=== PATIENT | female | born 1965 | race Caucasian/White ===

== ENCOUNTER 2017-07-06 15:44 | Inpatient (IN) | payer MEDICARE, MEDICAID ==
[~2017-07-06] VITALS: Ht 160 cm; Wt 48.2 kg
[~2017-07-06 15:44] MED LIST: BUPR1TAB44 SL; DIPH25CA85 PO; GABA100C PO; LEVO50TA4 PO; RISP4TAB63 PO; ZOLP5TAB2 PO
[2017-07-06] MEDS ORDERED: PHENY100 PO (17:40)
[2017-07-06] MEDS ORDERED: PREG25 PO (17:40)
[2017-07-06] MEDS ORDERED: MORP15 PO (17:40)
[2017-07-06 18:12] LABS: BASOPHILS # (AUTO) 0.07 K/uL (0.00-0.20); EOSINOPHILS # (AUTO) 0.02 K/uL (0.00-0.70); EOSINOPHILS % (AUTO) 0.26 % (1.0-6.0); HEMATOCRIT 46.1 % (36-46); HEMOGLOBIN 15.4 g/dL (12.0-16.0); LYMPHOCYTES # (AUTO) 1.3 K/uL (1.0-4.8); LYMPHOCYTES % (AUTO) 18.9 % (22.0-44.0); MEAN CORPUSCULAR HGB CONC 33.3 G/dL (31.0-37.0); MEAN CORPUSCULAR VOLUME 90 fL (80-100); MONOCYTES # (AUTO) 0.4 K/uL (0.1-1.0); MONOCYTES % (AUTO) 5.6 % (2.0-9.0); NEUTROPHILS % (AUTO) 74.3 % (40.0-70.0); PLATELET COUNT (AUTO) 149 K/uL (150-450); RED BLOOD CELL COUNT(AUTO) 5.11 MIL/uL (4.00-5.20); RED CELL DISTRIBUTION WIDTH 12.8 % (11.5-14.5); WHITE BLOOD COUNT (AUTO) 6.8 K/uL (4.5-11.0)
[2017-07-06] MEDS ORDERED: ZOLP10TA7 PO (18:15)
[2017-07-06] MEDS ORDERED: LORazepam 2 MG/ML VIAL IM ONE (18:15)
[2017-07-06] MEDS ORDERED: HALOPERIDOL LACTATE 5 MG/ML VIAL IM ONE (18:15)
[2017-07-06] MEDS ORDERED: DiphenhydrAMINE HCL 50 MG/ML VIAL IM ONE (18:15)
[2017-07-06 18:27] LABS: ALANINE AMINOTRANSFERASE 17 U/L (12-78); ALBUMIN 3.8 g/dL (3.4-5.0); ANION GAP 8 mmol/L (8-16); ASPARTATE AMINOTRANSFERASE 21 U/L (15-37); BILIRUBIN,TOTAL 0.6 mg/dL (0.1-1.0); CALCIUM, TOTAL 9.1 mg/dL (8.8-10.5); CARBON DIOXIDE 28 mmol/L (22-29); CHLORIDE 102 mmol/L (98-107); CREATININE 0.74 mg/dL (0.60-1.30); GLOMERULAR FILTR. RATE CALC > 60 mL/min (>60); SODIUM SERUM 138 mmol/L (136-145); TOTAL PROTEIN, SERUM 7.1 g/dL (6.4-8.2); UREA NITROGEN, BLOOD 11 mg/dL (7-18)
[2017-07-06 18:29] LABS: POTASSIUM 2.8 mmol/L (3.5-5.1)
[2017-07-06] MEDS ORDERED: POTASSIUM CHLORIDE 20 MEQ ER TABLET PO ONE (18:30)
[2017-07-06 20:13] LABS: CHOL/HDL RATIO 2.2 (3.9-5.7); THYROID STIMULATING HORMONE 0.36 uIU/mL (0.36-3.74)
[2017-07-06 21:25] VITALS: BP 137/75
[2017-07-06] MEDS: QUEtiapine FUMARATE 200 MG TABLET PO SCH (22:30)
[2017-07-07 04:31] VITALS: BP 95/72
[2017-07-07] MEDS ORDERED: CloNIDine HCL 0.1 MG TABLET PO PRN (07:30)
[2017-07-07] MEDS ORDERED: LOPERAMIDE HCL 2 MG CAPSULE PO PRN (07:30)
[2017-07-07] MEDS ORDERED: ALBUTEROL SULFATE HFA 90 MCG/PUFF 8 GM INHALER IH PRN (07:30)
[2017-07-07] MEDS ORDERED: BENZOCAINE/MENTHOL LOZENGE MM PRN (07:30)
[2017-07-07] MEDS ORDERED: MAGNESIUM HYDROXIDE SUSPENSION 30 ML UDCUP PO PRN (07:30)
[2017-07-07] MEDS ORDERED: MAG HYDROX/AL HYDROX/SIMETH ES 30 ML SUSPENSION UDCUP PO PRN (07:30)
[2017-07-07] MEDS ORDERED: ONDANSETRON HCL 4 MG TABLET PO PRN (07:30)
[2017-07-07] MEDS ORDERED: BACITRACIN 28.4 GM OINTMENT TP PRN (07:30)
[2017-07-07] MEDS ORDERED: PETROLATUM,WHITE 71 GM JELLY TP PRN (07:30)
[2017-07-07] MEDS: IBUPROFEN 600 MG TABLET PO PRN (07:41)
[2017-07-07] MEDS: LORazepam 2 MG TABLET PO PRN (07:41)
[2017-07-07 08:00] VITALS: BP 110/86
[2017-07-07] MEDS: QUEtiapine FUMARATE 200 MG TABLET PO SCH ×2 (08:35→17:19)
[2017-07-07 09:00] VITALS: BP 100/79
[2017-07-07] MEDS: PREGABALIN 50 MG CAPSULE PO SCH ×3 (10:36→18:01)
[2017-07-07] MEDS: PHENYTOIN SODIUM 100 MG ER CAPSULE PO SCH ×2 (13:20→17:19)
[2017-07-07] MEDS ORDERED: BENZOCAINE/MENTHOL LOZENGE [8 LOZENGES/PACKET] MM PRN (21:15)
[2017-07-07 23:32] VITALS: BP 102/65
[2017-07-08 01:30] VITALS: BP 92/66
[2017-07-08] MEDS: ZOLPIDEM TARTRATE 10 MG TABLET PO PRN (01:37)
[2017-07-08] MEDS: HALOPERIDOL 5 MG TABLET PO PRN ×3 (04:10→19:52)
[2017-07-08] MEDS: IBUPROFEN 600 MG TABLET PO PRN ×3 (05:24→19:53)
[2017-07-08] MEDS: ACETAMINOPHEN 325 MG TABLET PO PRN ×2 (07:14→16:53)
[2017-07-08] MEDS: LEVOTHYROXINE SODIUM 50 MCG TABLET PO SCH (07:14)
[2017-07-08] MEDS: PHENYTOIN SODIUM 100 MG ER CAPSULE PO SCH ×3 (08:21→17:15)
[2017-07-08] MEDS: PREGABALIN 50 MG CAPSULE PO SCH ×3 (08:21→17:16)
[2017-07-08] MEDS: QUEtiapine FUMARATE 200 MG TABLET PO SCH ×2 (08:21→17:16)
[2017-07-08 08:30] VITALS: BP 109/61
[2017-07-08] MEDS: LORazepam 2 MG TABLET PO PRN ×2 (09:51→17:16)
[2017-07-08] MEDS: NICOTINE 21 MG/24 HOUR PATCH TD SCH (11:40)
[2017-07-08 12:15] VITALS: BP 113/70
[2017-07-08 13:30] VITALS: BP 115/63
[2017-07-08 16:50] VITALS: BP 110/77
[2017-07-08 18:00] VITALS: BP 112/75
[2017-07-09] MEDS: LEVOTHYROXINE SODIUM 50 MCG TABLET PO SCH (06:56)
[2017-07-09] MEDS: PHENYTOIN SODIUM 100 MG ER CAPSULE PO SCH ×3 (08:15→16:46)
[2017-07-09] MEDS: QUEtiapine FUMARATE 200 MG TABLET PO SCH ×2 (08:15→16:46)
[2017-07-09] MEDS: PREGABALIN 50 MG CAPSULE PO SCH ×3 (08:15→16:46)
[2017-07-09] MEDS: NICOTINE 21 MG/24 HOUR PATCH TD SCH (08:28)
[2017-07-09 08:55] VITALS: BP 103/80
[2017-07-09] MEDS: LORazepam 2 MG TABLET PO PRN (09:04)
[2017-07-09 10:15] VITALS: BP 99/76
[2017-07-09] MEDS: IBUPROFEN 600 MG TABLET PO PRN ×2 (10:22→19:14)
[2017-07-09 11:25] VITALS: BP 97/76
[2017-07-09] MEDS: HALOPERIDOL 5 MG TABLET PO PRN (11:36)
[2017-07-09 18:04] VITALS: BP 102/57
[2017-07-09] MEDS: ZOLPIDEM TARTRATE 10 MG TABLET PO PRN (21:05)
[2017-07-10] VITALS (9 sets, daily range): BP systolic 103–121; BP diastolic 56–87
[2017-07-10] MEDS: IBUPROFEN 600 MG TABLET PO PRN ×3 (02:26→17:33)
[2017-07-10] MEDS: LEVOTHYROXINE SODIUM 50 MCG TABLET PO SCH (07:04)
[2017-07-10] MEDS: PHENYTOIN SODIUM 100 MG ER CAPSULE PO SCH ×3 (08:02→16:10)
[2017-07-10] MEDS: QUEtiapine FUMARATE 200 MG TABLET PO SCH ×2 (08:03→16:10)
[2017-07-10] MEDS: LORazepam 2 MG TABLET PO PRN ×3 (08:03→20:24)
[2017-07-10] MEDS: HALOPERIDOL 5 MG TABLET PO PRN ×3 (08:03→20:24)
[2017-07-10] MEDS: PREGABALIN 50 MG CAPSULE PO SCH ×3 (08:03→16:10)
[2017-07-10] MEDS: NICOTINE 21 MG/24 HOUR PATCH TD SCH (08:07)
[2017-07-10] MEDS: ACETAMINOPHEN 325 MG TABLET PO PRN ×2 (09:54→16:14)
[2017-07-10] MEDS: ZOLPIDEM TARTRATE 10 MG TABLET PO PRN (21:17)
[2017-07-11] VITALS (7 sets, daily range): BP systolic 98–127; BP diastolic 35–76
[2017-07-11] MEDS: IBUPROFEN 600 MG TABLET PO PRN ×2 (05:43→13:57)
[2017-07-11] MEDS: LORazepam 2 MG TABLET PO PRN ×2 (05:43→17:40)
[2017-07-11] MEDS: LEVOTHYROXINE SODIUM 50 MCG TABLET PO SCH (06:45)
[2017-07-11] MEDS: PHENYTOIN SODIUM 100 MG ER CAPSULE PO SCH ×3 (08:07→16:36)
[2017-07-11] MEDS: QUEtiapine FUMARATE 200 MG TABLET PO SCH ×2 (08:07→16:36)
[2017-07-11] MEDS: NICOTINE 21 MG/24 HOUR PATCH TD SCH (08:07)
[2017-07-11] MEDS: PREGABALIN 50 MG CAPSULE PO SCH ×3 (08:07→16:36)
[2017-07-11] MEDS: HALOPERIDOL 5 MG TABLET PO PRN ×2 (09:24→15:18)
[2017-07-11] MEDS: ACETAMINOPHEN 325 MG TABLET PO PRN (10:30)
[2017-07-11] MEDS ORDERED: DiphenhydrAMINE HCL 50 MG/ML VIAL ONE (20:09)
[2017-07-11] MEDS ORDERED: LORazepam 2 MG/ML VIAL IM ONE (20:15)
[2017-07-11] MEDS ORDERED: DiphenhydrAMINE HCL 50 MG/ML VIAL IM ONE (20:15)
[2017-07-11] MEDS ORDERED: HALOPERIDOL LACTATE 5 MG/ML VIAL IM ONE (20:15)
[2017-07-11] MEDS: ZOLPIDEM TARTRATE 10 MG TABLET PO PRN (21:32)
[2017-07-12 06:00] VITALS: BP 110/68
[2017-07-12] MEDS: LORazepam 2 MG TABLET PO PRN ×2 (06:27→10:46)
[2017-07-12] MEDS: LEVOTHYROXINE SODIUM 50 MCG TABLET PO SCH (06:27)
[2017-07-12] MEDS: PREGABALIN 50 MG CAPSULE PO SCH ×3 (08:11→16:25)
[2017-07-12] MEDS: QUEtiapine FUMARATE 200 MG TABLET PO SCH ×2 (08:11→16:25)
[2017-07-12] MEDS: PHENYTOIN SODIUM 100 MG ER CAPSULE PO SCH ×3 (08:12→16:25)
[2017-07-12] MEDS: NICOTINE 21 MG/24 HOUR PATCH TD SCH (08:12)
[2017-07-12 09:21] VITALS: BP 123/44
[2017-07-12 09:46] VITALS: BP 125/89
[2017-07-12] MEDS: IBUPROFEN 600 MG TABLET PO PRN ×2 (09:46→23:06)
[2017-07-12 10:46] VITALS: BP 123/78
[2017-07-12] MEDS: HALOPERIDOL 5 MG TABLET PO PRN (10:46)
[2017-07-12 14:09] VITALS: BP 130/88
[2017-07-12] MEDS: ACETAMINOPHEN 325 MG TABLET PO PRN (14:09)
[2017-07-12 17:15] VITALS: BP 114/62
[2017-07-12] MEDS: ZOLPIDEM TARTRATE 10 MG TABLET PO PRN (23:00)
[2017-07-13 05:30] VITALS: BP 125/86
[2017-07-13] MEDS: HALOPERIDOL 5 MG TABLET PO PRN ×2 (05:31→10:44)
[2017-07-13] MEDS: LORazepam 2 MG TABLET PO PRN (05:31)
[2017-07-13] MEDS: IBUPROFEN 600 MG TABLET PO PRN ×2 (06:47→19:23)
[2017-07-13] MEDS: LEVOTHYROXINE SODIUM 50 MCG TABLET PO SCH (06:47)
[2017-07-13] MEDS: PREGABALIN 50 MG CAPSULE PO SCH ×3 (08:02→16:15)
[2017-07-13] MEDS: NICOTINE 21 MG/24 HOUR PATCH TD SCH (08:02)
[2017-07-13] MEDS: PHENYTOIN SODIUM 100 MG ER CAPSULE PO SCH ×3 (08:02→16:15)
[2017-07-13] MEDS: QUEtiapine FUMARATE 200 MG TABLET PO SCH ×2 (08:02→16:15)
[2017-07-13 09:15] VITALS: BP 145/52
[2017-07-13 18:44] VITALS: BP 105/67
[2017-07-13 19:21] VITALS: BP 110/71
[2017-07-13] MEDS: ZOLPIDEM TARTRATE 10 MG TABLET PO PRN (20:18)
[2017-07-13 20:25] VITALS: BP 121/76
[2017-07-14] MEDS: ACETAMINOPHEN 325 MG TABLET PO PRN ×2 (00:01→05:57)
[2017-07-14 00:02] VITALS: BP 103/57
[2017-07-14 02:30] VITALS: BP 143/83
[2017-07-14] MEDS: IBUPROFEN 600 MG TABLET PO PRN (02:32)
[2017-07-14] MEDS: HALOPERIDOL 5 MG TABLET PO PRN (03:36)
[2017-07-14] MEDS: LORazepam 2 MG TABLET PO PRN (03:36)
[2017-07-14] MEDS: LEVOTHYROXINE SODIUM 50 MCG TABLET PO SCH (06:08)
[2017-07-14 08:30] VITALS: BP 110/73
[2017-07-14] MEDS: PHENYTOIN SODIUM 100 MG ER CAPSULE PO SCH (08:42)
[2017-07-14] MEDS: QUEtiapine FUMARATE 200 MG TABLET PO SCH (08:42)
[2017-07-14] MEDS: PREGABALIN 50 MG CAPSULE PO SCH (08:42)
[2017-07-14] MEDS: NICOTINE 21 MG/24 HOUR PATCH TD SCH (09:00)
[2017-07-14] MEDS ORDERED: QUET200T PO (10:47)
== END 2017-07-14 11:15 | disposition home or self-care (01) | DRG 885 ==
LOC: EMS 15:46 → 3EX 19:24
PROVIDERS: ADMIT Psychiatry & Neurology Psychiatry; ATTEND Psychiatry & Neurology Psychiatry
DX: F25.9 Schizoaffective disorder, unspecified (principal); E44.1 Mild protein-calorie malnutrition; R45.851 Suicidal ideations; Z68.1 Body mass index [BMI] 19.9 or less, adult; D64.9 Anemia, unspecified; E03.9 Hypothyroidism, unspecified; E87.6 Hypokalemia; G40.909 Epilepsy, unspecified, not intractable, without status epilepticus; G47.00 Insomnia, unspecified; G89.4 Chronic pain syndrome; J44.9 Chronic obstructive pulmonary disease, unspecified; K21.9 Gastro-esophageal reflux disease without esophagitis; F15.10 Other stimulant abuse, uncomplicated; G62.9 Polyneuropathy, unspecified; M19.90 Unspecified osteoarthritis, unspecified site; F17.210 Nicotine dependence, cigarettes, uncomplicated; Z98.891 History of uterine scar from previous surgery; Z71.6 Tobacco abuse counseling; Z76.5 Malingerer [conscious simulation]; Z91.14 Patient's other noncompliance with medication regimen; Z79.899 Other long term (current) drug therapy; Z80.8 Family history of malignant neoplasm of other organs or systems; Z82.49 Family history of ischemic heart disease and other diseases of the circulatory system
CPT/HCPCS: 84132; 84439; 84443; 96372; 99285; G0480; J1200; J1630; J2060

== ENCOUNTER → 2022-10-01 | Outpatient (CLI) | payer MEDICARE, OTHER ==
[~2022-10-01] MED LIST changes: -BUPR1TAB44 SL; -DIPH25CA85 PO; -GABA100C PO; +PHENY100 PO; +PREG25 PO; +QUET200T PO; -RISP4TAB63 PO; -ZOLP5TAB2 PO
[2022-10-01 14:49] LABS: HEMOGLOBIN A1C 5.8 % (3.8-5.6)
[2022-10-01 15:17] LABS: CHOL/HDL RATIO 3.1 (3.9-5.7)
== END | disposition home or self-care (01) ==
LOC: LABMN 13:58
PROVIDERS: ATTEND Psychiatry & Neurology Psychiatry
DX: F20.9 Schizophrenia, unspecified (principal); Z79.899 Other long term (current) drug therapy
CPT/HCPCS: 80061; 82947; 83036